=== PATIENT | female | born 1960 | race Caucasian/White ===

== ENCOUNTER 2019-10-12 06:28 | Day surgery (SDC) | payer OTHER ==
[2019-10-12] MEDS ORDERED: Lidocaine 2% 5 ML SDV INJECT ONE (06:29)
[2019-10-12] MEDS ORDERED: Propofol 200 MG/20 ML SDV IV ONE (06:29)
[2019-10-12] MEDS ORDERED: Lactated Ringers 1,000 ML IV SCH (06:45)
[2019-10-12] MEDS ORDERED: Sodium Chloride 0.9% 10 ML Syringe FLUSH PRN (06:45)
--- NOTE | 2019-10-12 08:19 | PCM.OPNOTE ---
- General Post-Op/Procedure Note Date of Surgery/Procedure: 10/12/19 Operative Procedure(s): c scope with bx Findings: rectal polyps x2 Pre Op Diagnosis: screening Post-Op Diagnosis: rectal polyps x2 Anesthesia Technique: MAC Primary Surgeon: Cirilo Gomez Anesthesia Provider: Farrah Conley Pathology: rectal polyps x2 Complications: None Condition: Good Free Text/Narrative:: see dictation
[2019-10-12 09:01] VITALS: BP 139/77; PULSE 57
--- NOTE | 2019-10-12 10:28 | OR ---
DATE OF OPERATION: 10/12/2019 SURGEON: Cirilo Gomez MD PROCEDURE PERFORMED: Colonoscopy with cold forceps biopsy. PREOPERATIVE DIAGNOSIS: Need for screening colonoscopy. POSTOPERATIVE DIAGNOSIS: Hyperplastic polyp x2 of the rectum. INDICATIONS FOR PROCEDURE: This is a 59-year-old white female who presents for screening colonoscopy. She was offered and accepted same. DESCRIPTION OF OPERATION: After an excellent IV sedation was administered, digital rectal exam was performed. No marked abnormality was noted. Flexible colonoscope was inserted and advanced to the cecum. Prep was excellent. The following findings were noted. Ascending colon, unremarkable. Transverse colon, unremarkable. Descending colon, unremarkable. Sigmoid, unremarkable. Rectum, two 2 mm hyperplastic polyps, biopsied with cold biopsy forceps and sent for permanent. The patient tolerated the procedure well, was taken to recovery in good condition. Results by letter. /[id number] /VIKTOR
== END 2019-10-12 08:50 | disposition home or self-care (01) ==
LOC: FB.SDS 06:28
PROVIDERS: ATTEND Surgery
DX: Z12.11 Encounter for screening for malignant neoplasm of colon (principal); K63.5 Polyp of colon; E66.9 Obesity, unspecified; Z68.30 Body mass index [BMI] 30.0-30.9, adult
CPT/HCPCS: 45380; J7120; 88305; J2001; J2704

== ENCOUNTER 2021-05-04 09:32 | Emergency (ER) | payer OTHER ==
[2021-05-04] MEDS ORDERED: Ketorolac 30 MG/ML SDV IVPUSH ONE (09:58)
--- NOTE | 2021-05-04 10:05 | EDM.PDOC ---
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[employer], works odd jobs as well no previous CV or pul hx, never smoked has had atypical CP in past went to walk-in who sent her here EKG unchanged c/w 06-18-15 lives alone - Related Data Allergies Allergy/AdvReac Type Severity Reaction Status Date / Time No Known Allergies Allergy Verified 10/12/19 07:24 Home Meds: Home Meds Acetaminophen/Diphenhydramine [Tylenol Pm Ex-Strength Caplet] 1 tab PO BEDTIME PRN 10/11/19 [History] Glucosam/Chondr/Collagn/Hyalur [Glucosamine & Chondroitin Cap] 1 each PO DAILY 10/11/19 [History] Multivitamin [Multivitamins] 1 each PO DAILY 10/11/19 [History] Past Medical History HEENT History: Reports: Impaired Vision Cardiovascular History: Reports: None Respiratory History: Reports: None Gastrointestinal History: Reports: None Genitourinary History: Reports: None 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: Musculoskeletal History: Reports: Fracture Other Musculoskeletal History: BROKEN NECK Neurological History: Reports: Headaches, Chronic Psychiatric History: Reports: None Endocrine/Metabolic History: Reports: Obesity/BMI 30+ Hematologic History: Reports: None Immunologic History: Reports: None Oncologic (Cancer) History: Reports: None Dermatologic History: Reports: None - Past Surgical History Head Surgeries/Procedures: Reports: None HEENT Surgical History: Reports: None Cardiovascular Surgical History: Reports: None Respiratory Surgical History: Reports: None GI Surgical History: Reports: Colonoscopy Female Surgical History: Reports: Section Endocrine Surgical History: Reports: None Neurological Surgical History: Reports: None Other Musculoskeletal Surgeries/Procedures:: BILAT CARPAL TUNNEL. RIGHT SHOULDER SCOPE, ROTATOR CUFF AND ACROMIAL DECOMPRESSION. LEFT BUNIONECTOMY. RIGHT THUMB TRIGGER FINGER RELEASE Oncologic Surgical History: Reports: None Dermatological Surgical History: Reports: None Social & Family History - Caffeine Use Caffeine Use: Reports: Coffee ED ROS GENERAL - Review of Systems Review Of Systems: See Below Constitutional: Reports: No Symptoms HEENT: Reports: No Symptoms Respiratory: Reports: No Symptoms. Denies: Shortness of Breath, Cough Cardiovascular: Reports: Chest Pain. Denies: Edema, Palpitations Endocrine: Reports: No Symptoms GI/Abdominal: Reports: No Symptoms : Reports: No Symptoms Musculoskeletal: Reports: No Symptoms Skin: Reports: No Symptoms Neurological: Reports: No Symptoms Psychiatric: Reports: No Symptoms Hematologic/Lymphatic: Reports: No Symptoms Immunologic: Reports: No Symptoms ED EXAM, GENERAL - Physical Exam Exam: See Below Exam Limited By: No Limitations General Appearance: Alert, WD/WN, Anxious Ears: Hearing Grossly Normal Nose: Normal Inspection Throat/Mouth: Normal Inspection, Normal Voice, No Airway Compromise Head: Atraumatic, Normocephalic Neck: Normal Inspection, Supple, Non-Tender, Full Range of Motion. No: Lymphadenopathy (R), Lymphadenopathy (L) Respiratory/Chest: No Respiratory Distress, Lungs Clear, Normal Breath Sounds, Chest Non-Tender Cardiovascular: Regular Rate, Rhythm, No Edema, No Murmur GI/Abdominal: Soft, Non-Tender, No Organomegaly, No Distention Back Exam: Normal Inspection, Full Range of Motion. No: CVA Tenderness (R), CVA Tenderness (L) Extremities: Normal Inspection, Normal Range of Motion, Non-Tender, No Pedal Edema Neurological: Alert, Oriented, CN II-XII Intact, Normal Cognition, No Motor/Sensory Deficits Psychiatric: Normal Affect, Normal Mood Skin Exam: Warm, Dry, Intact, Normal Color, No Rash Lymphatic: No Adenopathy #1 Interpretation EKG Date: 05/04/21 Time: 09:34 Rhythm: NSR Graham: Normal P-Wave: Present QRS: Normal Comparison: No Change (borderline Q in V1 & V2 that is unchanged, nonspecific flattening of T-waves throughout c/w possible hypokalemia) #2 Interpretation EKG Date: 05/04/21 Time: 11:04 Rhythm: NSR Graham: Normal P-Wave: Present QRS: Normal Course - Vital Signs Last Recorded V/S: Last Vital Signs Temp 37.6 C 05/04/21 09:33 Pulse 72 05/04/21 09:33 Resp 20 05/04/21 09:33 BP 174/75 H 05/04/21 11:00 Pulse Ox 94 L 05/04/21 09:33 - Orders/Labs/Meds Orders: Active Orders 24 hr Category Date Time Status EKG Documentation Completion [RC] ASDIRECTED Care 05/04/21 09:47 Active EKG Documentation Completion [RC] ASDIRECTED Care 05/04/21 10:56 Active Chest 2V [CR] Stat Exams 05/04/21 09:46 Taken Nitroglycerin/D5W [Nitroglycerin 25 MG/D5W 250 ML] Med 05/04/21 12:15 Active 25 mg in 250 ml IV TITRATE EKG 12 Lead [EK] Routine Ther 05/04/21 09:46 Ordered EKG 12 Lead [EK] Routine Ther 05/04/21 10:56 Ordered Medication Orders Nitroglycerin/Dextrose (Nitroglycerin 25 Mg/D5w 250 Ml) 25 mg in 250 mls @ 6 mls/hr IV TITRATE JUSTIN; Protocol Last Titration: 05/04/21 13:45 Dose: 20 mcg/min, 12 mls/hr Documented by: Titration: 05/04/21 13:04 Dose: 15 mcg/min, 9 mls/hr Documented by: Admin: 05/04/21 12:32 Dose: 10 mcg/min, 6 mls/hr Documented by: FADI Labs: Laboratory Tests 05/04/21 05/04/21 05/04/21 Range/Units 09:55 09:55 09:55 WBC 4.7 (3.0-10.3) x10-3/uL RBC 4.21 (3.60-5.20) x10(6)uL Hgb 13.4 (11.4-15.5) g/dL Hct 39.7 (34.2-48.2) % MCV 94.3 (76.7-100.5) fL MCH 31.8 (23.9-33.9) pg MCHC 33.7 (31.9-34.8) g/dL RDW 13.4 (12.3-16.5) % Plt Count 263 (151-488) x10(3)uL MPV 7.0 L (7.1-12.4) fL Neut % (Auto) 60.2 (30.8-76.2) % Lymph % (Auto) 23.8 (18.4-52.1) % [place] % (Auto) 8.9 (4.4-15.7) % Eos % (Auto) 6.0 (0.6-8.1) % Baso % (Auto) 1.1 (0.2-1.5) % Neut # (Auto) 2.8 (1.5-6.3) x10-3/uL Lymph # (Auto) 1.1 (1.0-4.4) x10-3/uL [place] # (Auto) 0.4 (0.3-1.0) x10-3/uL Eos # (Auto) 0.3 (0.0-0.8) x10-3/uL Baso # (Auto) 0.1 (0.0-0.1) x10-3/uL D-Dimer, Quantitative 0.39 (0.0-0.59) mg/LFEU Sodium 142 (135-145) mmol/L Potassium 4.0 (3.5-5.3) mmol/L Chloride 106 (100-110) mmol/L Carbon Dioxide 27 (21-32) mmol/L BUN 18 (7-18) mg/dL Creatinine 0.8 (0.55-1.02) mg/dL Est Cr Clr Drug Dosing TNP Estimated GFR (MDRD) > 60 (>60) BUN/Creatinine Ratio 22.5 H (9-20) Glucose 106 (80-116) mg/dL Calcium 8.1 L (8.6-10.2) mg/dL Magnesium (1.8-2.5) mg/dL Total Bilirubin 0.7 (0.1-1.3) mg/dL AST 13 (5-25) IU/L ALT 23 (12-36) U/L Alkaline Phosphatase 69 (56-112) IU/L Troponin I (4.0-60.3) pg/mL C-Reactive Protein (0.5-0.9) mg/dL Total Protein 6.4 (6.0-8.0) g/dL Albumin 3.8 (3.2-4.6) g/dL Globulin 2.6 g/dL Albumin/Globulin Ratio 1.5 05/04/21 05/04/21 Range/Units 09:55 09:55 WBC (3.0-10.3) x10-3/uL RBC (3.60-5.20) x10(6)uL Hgb (11.4-15.5) g/dL Hct (34.2-48.2) % MCV (76.7-100.5) fL MCH (23.9-33.9) pg MCHC (31.9-34.8) g/dL RDW (12.3-16.5) % Plt Count (151-488) x10(3)uL MPV (7.1-12.4) fL Neut % (Auto) (30.8-76.2) % Lymph % (Auto) (18.4-52.1) % [place] % (Auto) (4.4-15.7) % Eos % (Auto) (0.6-8.1) % Baso % (Auto) (0.2-1.5) % Neut # (Auto) (1.5-6.3) x10-3/uL Lymph # (Auto) (1.0-4.4) x10-3/uL [place] # (Auto) (0.3-1.0) x10-3/uL Eos # (Auto) (0.0-0.8) x10-3/uL Baso # (Auto) (0.0-0.1) x10-3/uL D-Dimer, Quantitative (0.0-0.59) mg/LFEU Sodium (135-145) mmol/L Potassium (3.5-5.3) mmol/L Chloride (100-110) mmol/L Carbon Dioxide (21-32) mmol/L BUN (7-18) mg/dL Creatinine (0.55-1.02) mg/dL Est Cr Clr Drug Dosing Estimated GFR (MDRD) (>60) BUN/Creatinine Ratio (9-20) Glucose (80-116) mg/dL Calcium (8.6-10.2) mg/dL Magnesium 1.8 (1.8-2.5) mg/dL Total Bilirubin (0.1-1.3) mg/dL AST (5-25) IU/L ALT (12-36) U/L Alkaline Phosphatase (56-112) IU/L Troponin I 5.0 (4.0-60.3) pg/mL C-Reactive Protein < 0.2 L (0.5-0.9) mg/dL Total Protein (6.0-8.0) g/dL Albumin (3.2-4.6) g/dL Globulin g/dL Albumin/Globulin Ratio Meds: Medications Generic Name Dose Route Start Last Admin Trade Name Freq PRN Reason Stop Dose Admin Nitroglycerin/Dextrose 25 mg in 250 mls @ 6 mls/hr 05/04/21 12:15 05/04/21 13:45 Nitroglycerin 25 Mg/D5w 250 Ml IV 20 mcg/min TITRATE JUSTIN 12 mls/hr Titration Protocol 10 MCG/MIN Discontinued Medications Generic Name Dose Route Start Last Admin Trade Name Freq PRN Reason Stop Dose Admin Aspirin 324 mg 05/04/21 12:07 05/04/21 12:26 Aspirin 81 Mg Tab.Chew PO 05/04/21 12:08 324 mg ONETIME ONE Administration Clopidogrel Bisulfate 300 mg 05/04/21 12:08 05/04/21 12:26 Clopidogrel 75 Mg Tab PO 05/04/21 12:09 300 mg ONETIME ONE Administration Ketorolac Tromethamine 30 mg 05/04/21 09:58 05/04/21 10:05 Ketorolac 30 Mg/Ml Sdv IVPUSH 05/04/21 09:59 30 mg ONETIME ONE Administration Metoprolol Tartrate 5 mg 05/04/21 12:10 Metoprolol Tartrate 5 Mg/5 Ml Sdv IVPUSH 05/04/21 12:11 ONETIME ONE Nitroglycerin 0.4 mg 05/04/21 10:56 05/04/21 11:00 Nitroglycerin 0.4 Mg Tab.Sl SL 05/04/21 10:57 0.4 mg ONETIME ONE Administration - Re-Assessments/Exams Free Text/Narrative Re-Assessment/Exam: 05/04/21 12:35 some better after Toradol, then L sided CP returned, tightness given NTG SL x 1 without change in pain, however 2nd EKG done 5 min after 1st EKG and pt now with upright T waves in V4-6 (flattened previously), same EKG tabs on chest used with both EKGs HR back down to 61 and unable to give metoprolol did have bigeminy for a few minutes with the 2nd beat a ventricular beat, back in sinus now SBP has inc'd to 170, will give NTG IV drip to control both BP and CP ASA 324 mg and Plavix 300 mg PO given d/w Dr Johnson, [facility] hospitalist, who accepted pt in transfer pt requested to drive herself, however informed that she is at risk for NM and needs additional meds 05/04/21 15:24 EMS here, nitro drip inc'd several times, did seem to help decrease pain and SBP, EMS told to increase nitro further as needed labs neg here Departure - Departure Time of Disposition: 15:25 Disposition: DC/Tfer to [facility] 02 Reason for Transfer *Q: Other Condition: Good Clinical Impression: Left-sided chest pain, Atypical chest pain, Abnormal EKG Sepsis Event Note (ED) - Focused Exam Vital Signs: Vital Signs Temp Pulse Resp BP BP Pulse Ox 05/04/21 11:00 174/75 H 05/04/21 09:33 37.6 C 72 20 165/81 H 94 L - My Orders Last 24 Hours: My Active Orders 05/04/21 09:46 Chest 2V [CR] Stat EKG 12 Lead [EK] Routine 05/04/21 09:47 EKG Documentation Completion [RC] ASDIRECTED 05/04/21 10:56 EKG Documentation Completion [RC] ASDIRECTED EKG 12 Lead [EK] Routine 05/04/21 12:15 Nitroglycerin/D5W [Nitroglycerin 25 MG/D5W 250 ML] 25 mg in 250 ml IV TITRATE - Assessment/Plan Last 24 Hours: My Active Orders 05/04/21 09:46 Chest 2V [CR] Stat EKG 12 Lead [EK] Routine 05/04/21 09:47 EKG Documentation Completion [RC] ASDIRECTED 05/04/21 10:56 EKG Documentation Completion [RC] ASDIRECTED EKG 12 Lead [EK] Routine 05/04/21 12:15 Nitroglycerin/D5W [Nitroglycerin 25 MG/D5W 250 ML] 25 mg in 250 ml IV TITRATE
[2021-05-04 10:32] VITALS: PULSE 72
[2021-05-04] MEDS ORDERED: Nitroglycerin 0.4 MG Tab.SL SL ONE (10:56)
[2021-05-04 11:02] VITALS: BP 174/75
[2021-05-04] MEDS ORDERED: Aspirin 81 MG Tab.Chew PO ONE (12:07)
[2021-05-04] MEDS ORDERED: Clopidogrel 75 MG Tab PO ONE (12:08)
[2021-05-04] MEDS ORDERED: Metoprolol Tartrate 5 MG/5 ML SDV IVPUSH ONE (12:10)
[2021-05-04] MEDS ORDERED: Nitroglycerin/D5W 25 MG/250 ML BOTTLE IV SCH (12:15)
--- NOTE | 2021-05-06 10:58 | CR ---
INDICATION: Chest pain. CHEST, TWO VIEWS: PA and lateral views of the chest 05/04/21 were compared with 06/18/15 and 05/19/10. The heart remains normal in size and shape. The aorta is somewhat tortuous with suggestion of some very minimal calcification in the arch. Overlying EKG leads are noted. An active infiltrate or effusion was not identified. IMPRESSION: 1. No acute process. 2. Mild ASD aorta. MTDD
== END 2021-05-04 15:25 ==
LOC: FB.ED 09:32
DX: R07.89 Other chest pain (principal); E66.9 Obesity, unspecified; R94.31 Abnormal electrocardiogram [ECG] [EKG]; Z68.30 Body mass index [BMI] 30.0-30.9, adult
CPT/HCPCS: 36415; 71046; 80053; 83735; 84484; 85025; 85379; 86140; 93005; 96365; 96366; 96375; 99285; A9270; J1885; J3490